=== PATIENT | male | born 1990 | race Caucasian/White ===

== ENCOUNTER 2016-08-02 04:16 | Emergency (ER) | payer BC ==
[2016-08-02] MEDS ORDERED: ACETAMINOPHEN IV (For NPO) 1,000 MG in EMPTY BAG 1 BAG IVPB STA (05:42)
[2016-08-02] MEDS ORDERED: KETOROLAC 30 MG/ML 1 ML VIAL IVP STA (05:42)
[2016-08-02] MEDS ORDERED: PANTOPRAZOLE 40 MG/10 ML VIAL IVP STA (05:42)
[2016-08-02] MEDS ORDERED: ONDANSETRON 4 MG/2 ML VIAL IVP STA (05:42)
[2016-08-02] MEDS ORDERED: SODIUM CHLORIDE 0.9% 500 ML IV STA (05:42)
[2016-08-02] MEDS ORDERED: SODIUM CHLORIDE 0.9% 1,000 ML IV STA (05:42)
--- NOTE | 2016-08-02 05:44 | ED ---
General Adult HPI - General Chief complaint: Nausea/Vomiting/Diarrhea Stated complaint: Vomiting/Back Pain Time Seen by Provider: 08/02/16 04:32 Source: patient, RN notes reviewed, old records reviewed Mode of arrival: wheelchair Limitations: no limitations - History of Present Illness Initial comments: This is a 26-year-old male who ER severe nausea vomiting and diarrhea. Patient' s Nothing 3-4 days. Patient denies any past medical history, no medications, no withdrawal medications, no drugs or alcohol. Patient has no recent travel history, severe fever starting yesterday and today, patient again is taking no medications fluid or food 3 days. Patient does feel very weak - Related Data Previous Rx's Medication Instructions Recorded Acetaminophen with Codeine 1 tab PO Q4H PRN #20 tab 08/02/16 [Tylenol w/codeine #3] Naproxen [Naprosyn] 500 mg PO Q12HR #30 tab 08/02/16 Ondansetron [Zofran] 4 mg PO Q8HR PRN #30 tab 08/02/16 Allergies Allergy/AdvReac Type Severity Reaction Status Date / Time No Known Allergies Allergy Verified 08/02/16 05:13 Review of Systems ROS Statement: Those systems with pertinent positive or pertinent negative responses have been documented in the HPI. ROS Other: All systems not noted in ROS Statement are negative. Past Medical History Additional Past Medical History / Comment(s): back pain History of Any Multi-Drug Resistant Organisms: None Reported Past Surgical History: No Surgical Hx Reported Past Psychological History: No Psychological Hx Reported Smoking Status: Current every day smoker Past Alcohol Use History: Occasional Past Drug Use History: None Reported General Exam Limitations: no limitations General appearance: alert, anxious, lethargic, in distress Head exam: Present: atraumatic, normocephalic, normal inspection Eye exam: Present: normal appearance, PERRL, EOMI. Absent: scleral icterus, conjunctival injection, periorbital swelling ENT exam: Present: mucous membranes dry Neck exam: Present: normal inspection. Absent: tenderness, meningismus, lymphadenopathy Respiratory exam: Present: normal lung sounds bilaterally. Absent: respiratory distress, wheezes, rales, rhonchi, stridor Cardiovascular Exam: Present: normal rhythm, tachycardia, normal heart sounds. Absent: systolic murmur, diastolic murmur, rubs, gallop, clicks GI/Abdominal exam: Present: soft, normal bowel sounds. Absent: distended, tenderness, guarding, rebound, rigid Extremities exam: Present: normal inspection, full ROM, normal capillary refill. Absent: tenderness, pedal edema, joint swelling, calf tenderness Back exam: Present: normal inspection Neurological exam: Present: alert, oriented X3, CN II-XII intact Psychiatric exam: Present: normal affect, normal mood Skin exam: Present: warm, dry, intact, normal color. Absent: rash Course Vital Signs 08/02/16 08/02/16 05:10 07:50 Temperature 102.4 F H 97.7 F Pulse Rate 107 H 97 Respiratory 16 15 Rate Blood Pressure 167/79 127/61 O2 Sat by Pulse 99 95 Oximetry Medical Decision Making - Medical Decision Making 26 year for severe nausea vomiting and diarrhea. Not eating or drinking for 3- 4 days. Feeling much better with fever control simple control and hydration here in emergency room. Patient was given symptom control for home and encouraged to increase liquid diet. - Lab Data Result diagrams: 08/02/16 05:35 08/02/16 05:35 Lab Results 08/02/16 08/02/16 08/02/16 Range/Units 05:35 05:35 05:35 WBC 19.3 H (3.8-10.6) k/uL RBC 5.90 (4.30-5.90) m/uL Hgb 16.8 (13.0-17.5) gm/dL Hct 47.7 (39.0-53.0) % MCV 80.9 (80.0-100.0) fL MCH 28.5 (25.0-35.0) pg MCHC 35.3 (31.0-37.0) g/dL RDW 12.6 (11.5-15.5) % Plt Count 250 (150-450) k/uL Neutrophils % 89 % Lymphocytes % 4 % Monocytes % 7 % Eosinophils % 0 % Basophils % 0 % Neutrophils # 17.2 H (1.3-7.7) k/uL Lymphocytes # 0.7 L (1.0-4.8) k/uL Monocytes # 1.3 H (0-1.0) k/uL Eosinophils # 0.0 (0-0.7) k/uL Basophils # 0.0 (0-0.2) k/uL Sodium 138 (137-145) mmol/L Potassium 3.9 (3.5-5.1) mmol/L Chloride 99 (98-107) mmol/L Carbon Dioxide 22 (22-30) mmol/L Anion Gap 17 mmol/L BUN 9 (9-20) mg/dL Creatinine 1.00 (0.66-1.25) mg/dL Est GFR (MDRD) Af Amer >60 (>60 ml/min/1.73 sqM) Est GFR (MDRD) Non-Af >60 (>60 ml/min/1.73 sqM) Glucose 118 H (74-99) mg/dL Plasma Lactic Acid Joseph 1.9 (0.7-2.0) mmol/L Calcium 10.0 (8.4-10.2) mg/dL Phosphorus 1.3 L (2.5-4.5) mg/dL Magnesium 1.4 L (1.6-2.3) mg/dL Total Bilirubin 1.9 H (0.2-1.3) mg/dL AST 23 (17-59) U/L ALT 44 (21-72) U/L Alkaline Phosphatase 121 (38-126) U/L Total Protein 6.7 (6.3-8.2) g/dL Albumin 4.6 (3.5-5.0) g/dL Disposition Clinical Impression: Dehydration Disposition: HOME SELF-CARE Instructions: Acute Nausea and Vomiting (ED), Acute Diarrhea (ED) Prescriptions: Acetaminophen with Codeine [Tylenol w/codeine #3] 1 tab PO Q4H PRN #20 tab PRN Reason: Pain Naproxen [Naprosyn] 500 mg PO Q12HR #30 tab Ondansetron [Zofran] 4 mg PO Q8HR PRN #30 tab PRN Reason: Nausea And Vomiting Referrals: None,Stated [Primary Care Provider] - 1-2 days
[2016-08-02 06:42] LABS: ALT 44 U/L (21-72); AST 23 U/L (17-59); Alkaline Phosphatase 121 U/L (38-126); Anion Gap 17 mmol/L; Blood Urea Nitrogen 9 mg/dL (9-20); Carbon Dioxide 22 mmol/L (22-30); Chloride 99 mmol/L (98-107); Glucose 118 mg/dL (74-99); Magnesium 1.4 mg/dL (1.6-2.3); Non-African American GFR(MDRD) >60 (>60 ml/min/1.73 sqM); Phosphorous 1.3 mg/dL (2.5-4.5); Potassium 3.9 mmol/L (3.5-5.1); Sodium 138 mmol/L (137-145); Total Bilirubin 1.9 mg/dL (0.2-1.3); Total Protein 6.7 g/dL (6.3-8.2)
[2016-08-02 06:50] LABS: Basophils % (A) 0 %; CHCM 37.2; Eosinophils % (A) 0 %; HCT 47.7 % (39.0-53.0); HDW 2.82; HGB 16.8 gm/dL (13.0-17.5); Luc # (Auto) 0.13; Luc % (Auto) 1; Lymphocytes # (A) 0.7 k/uL (1.0-4.8); Lymphocytes % (A) 4 %; MCH 28.5 pg (25.0-35.0); MCHC 35.3 g/dL (31.0-37.0); MCV 80.9 fL (80.0-100.0); Mean Platelet Volume 7.4; Monocytes # (A) 1.3 k/uL (0-1.0); Monocytes % (A) 7 %; Neutrophils # (A) 17.2 k/uL (1.3-7.7); Neutrophils % (A) 89 %; RDW 12.6 % (11.5-15.5); WBC 19.3 k/uL (3.8-10.6); WBC (Perox) 18.66
[2016-08-02 07:52] VITALS: BP 127/61; PULSE 97; RESP 15; TEMP 97.7
== END 2016-08-02 07:53 | disposition home or self-care (01) ==
LOC: EC 04:16
DX: E86.0 Dehydration (principal); R11.2 Nausea with vomiting, unspecified; R19.7 Diarrhea, unspecified; F17.200 Nicotine dependence, unspecified, uncomplicated
CPT/HCPCS: 36415; 80053; 83605; 83735; 84100; 85025; 87040; 99284; 96365; 96375; J2405; J1885; J0131; C9113

== ENCOUNTER 2016-08-10 07:51 | Emergency (ER) | payer BC ==
[2016-08-10 07:55] VITALS: RESP 20
[2016-08-10] MEDS ORDERED: FAMOTIDINE 20 MG TAB PO STA (08:16)
[2016-08-10] MEDS ORDERED: diphenhydrAMINE 50 MG CAP PO STA (08:16)
[2016-08-10] MEDS ORDERED: methylPREDNISolone SOD SUCCI 125 MG/2 ML VIAL IM STA (08:16)
--- NOTE | 2016-08-10 08:16 | ED ---
General Adult HPI - General Chief complaint: Skin/Abscess/Foreign Body Stated complaint: allergic reaction Time Seen by Provider: 08/10/16 08:03 Source: patient, RN notes reviewed Mode of arrival: ambulatory Limitations: no limitations - History of Present Illness Initial comments: 26-year-old male presents to the emergency department with a chief complaint of poison viry. 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 Patient then developed a rash. Patient states he went to his doctor he was started on steroids but he states it does not seem to be improving. Patient states there is nothing new or different in the house. Patient states breath if she does not feel warm to the touch. Patient has a nausea vomiting or fever chills with this. Patient states there is no new medications. Patient states she was concerned due to the continued rash and itching to thought that he should be evaluated. Patient states that he is in serious but he does not know the dose. Patient denies any fever chills associated with this. Patient states it's much like his typical reaction he gets when he has poison viry. Patient denies any recent fever, chills , shortness of breath, chest pain, back pain, abdominal pain, nausea vomiting, numbness or tingling, dysuria or hematuria, constipation or diarrhea, headaches or visual changes, or any other current symptoms. - Related Data Home Medications Medication Instructions Recorded Confirmed Prednisone(Unknown) 1 tab PO DAILY 08/10/16 08/10/16 Previous Rx's Medication Instructions Recorded Calamine/Zinc Oxide Lotion 1 applic TOPICAL QID 5 Days 08/10/16 [Calamine Lotion] Famotidine [Pepcid] 20 mg PO BID #10 tablet 08/10/16 diphenhydrAMINE [Benadryl] 50 mg PO HS PRN #5 capsule 08/10/16 predniSONE 20 mg PO DAILY #42 tab 08/10/16 Allergies Allergy/AdvReac Type Severity Reaction Status Date / Time No Known Allergies Allergy Verified 08/10/16 08:03 Review of Systems ROS Statement: Those systems with pertinent positive or pertinent negative responses have been documented in the HPI. ROS Other: All systems not noted in ROS Statement are negative. Past Medical History Additional Past Medical History / Comment(s): back pain History of Any Multi-Drug Resistant Organisms: None Reported Past Surgical History: No Surgical Hx Reported Past Psychological History: No Psychological Hx Reported Smoking Status: Current every day smoker Past Alcohol Use History: Occasional Past Drug Use History: None Reported General Exam Limitations: no limitations General appearance: alert, in no apparent distress Neck exam: Present: normal inspection Respiratory exam: Present: normal lung sounds bilaterally. Absent: respiratory distress, wheezes, rales, rhonchi, stridor Cardiovascular Exam: Present: regular rate, normal rhythm, normal heart sounds. Absent: systolic murmur, diastolic murmur, rubs, gallop, clicks Neurological exam: Present: alert, oriented X3, CN II-XII intact. Absent: motor sensory deficit Psychiatric exam: Present: normal affect, normal mood Skin exam: Present: warm, dry, intact, rash (Diffuse to arms and abdomen erythematous, no induration, nonraised) Course Vital Signs 08/10/16 07:53 Temperature 98.0 F Pulse Rate 75 Respiratory 20 Rate Blood Pressure 155/84 O2 Sat by Pulse 100 Oximetry Medical Decision Making - Medical Decision Making 26-year-old male presents with what appears to be contact dermatitis most likely from poison viry. Patient's current prednisone dose is only 10. We will increase this as well as the patient of the Solu-Medrol injection. We also started on Benadryl and Pepcid. We did discuss that he needs to follow-up with either his doctor or ticket agent if he has not seen much improvement by Wednesday. We discussed return parameters and all the patient's questions. He stated he understood he is in agreement with plan all questions have been answered. He will be discharged. Disposition Clinical Impression: Contact dermatitis Disposition: HOME SELF-CARE Condition: Stable Instructions: Poison Viry (ED), Contact Dermatitis (ED) Additional Instructions: Please use medication as discussed. Please follow up with family doctor if symptoms have not improved over the next two days. Please return to the emergency room if your symptoms increase or worsen or for any other concerns. Prescriptions: Calamine/Zinc Oxide Lotion [Calamine Lotion] 1 applic TOPICAL QID 5 Days Famotidine [Pepcid] 20 mg PO BID #10 tablet diphenhydrAMINE [Benadryl] 50 mg PO HS PRN #5 capsule PRN Reason: Itching predniSONE 20 mg PO DAILY #42 tab Referrals: None,Stated [Primary Care Provider] - 1-2 days Elzbieta,Fabiola, MD [STAFF PHYSICIAN] - 1-2 days Time of Disposition: 08:22
[2016-08-10 08:51] VITALS: BP 132/84; PULSE 78; TEMP 97.5
== END 2016-08-10 08:40 | disposition home or self-care (01) ==
LOC: EC 07:51
DX: L25.5 Unspecified contact dermatitis due to plants, except food (principal); F17.200 Nicotine dependence, unspecified, uncomplicated; Z79.52 Long term (current) use of systemic steroids
CPT/HCPCS: 99282; 96372; J2930

== ENCOUNTER 2018-03-29 12:53 | Emergency (ER) | payer BC, OTHER ==
[2018-03-29 13:12] VITALS: BP 136/93; PULSE 83; RESP 18; TEMP 98.7
--- NOTE | 2018-03-29 13:23 | ED ---
General Adult HPI - General Chief complaint: Extremity Injury, Upper Stated complaint: finger injury Time Seen by Provider: 03/29/18 13:15 Source: patient, RN notes reviewed, old records reviewed Mode of arrival: ambulatory Limitations: no limitations - History of Present Illness Initial comments: 48-year-old male presents with injury to the left thumb. States he was loading wood into a wood development director, walled pinned his left thumb against the metal housing of the development director. Injury occurred just prior to arrival. He has significant pain in this thumb. No other injury noted. Pain does shoot into the forearm when he moves his thumb. He also reports swelling of the left thumb as well. - Related Data Home Medications Medication Instructions Recorded Confirmed Prednisone(Unknown) 1 tab PO DAILY 08/10/16 08/10/16 Previous Rx's Medication Instructions Recorded Calamine/Zinc Oxide Lotion 1 applic TOPICAL QID 5 Days ml 08/10/16 [Calamine Lotion] Famotidine [Pepcid] 20 mg PO BID #10 tablet 08/10/16 diphenhydrAMINE [Benadryl] 50 mg PO HS PRN #5 capsule 08/10/16 predniSONE 20 mg PO DAILY #42 tab 08/10/16 Ibuprofen [Motrin] 600 mg PO Q8HR PRN #24 tab 03/29/18 Allergies Allergy/AdvReac Type Severity Reaction Status Date / Time No Known Allergies Allergy Verified 03/29/18 13:12 Review of Systems ROS Statement: Those systems with pertinent positive or pertinent negative responses have been documented in the HPI. ROS Other: All systems not noted in ROS Statement are negative. Past Medical History Additional Past Medical History / Comment(s): back pain History of Any Multi-Drug Resistant Organisms: None Reported Past Surgical History: No Surgical Hx Reported Past Psychological History: No Psychological Hx Reported Smoking Status: Former smoker Past Alcohol Use History: Occasional Past Drug Use History: None Reported General Exam Limitations: no limitations General appearance: alert, in no apparent distress Head exam: Present: atraumatic, normocephalic Eye exam: Present: normal appearance, PERRL ENT exam: Present: normal exam Neck exam: Present: normal inspection Respiratory exam: Present: normal lung sounds bilaterally. Absent: respiratory distress Cardiovascular Exam: Present: regular rate, normal rhythm Extremities exam: Present: other (Left hand, patient has pain and swelling of the proximal and distal forearm. There is some ecchymosis. Normal cap refill. No laceration. Patient has pain over the thumb as well as in the snuff box. Range of motion limited secondary to pain) Neurological exam: Present: alert Course Vital Signs 03/29/18 13:09 Temperature 98.7 F Pulse Rate 83 Respiratory 18 Rate Blood Pressure 136/93 O2 Sat by Pulse 97 Oximetry Procedures - Orthopedic Splinting/Casting Injury #1 Side: left Upper Extremity Injury Location: hand Upper Extremity Immobilizer: thumb spica Additional Comments: Patient is neurovascular intact both pre-and post-splinting. Medical Decision Making - Medical Decision Making 38-year-old male with left thumb injury. X-ray obtained, shows acute minimally displaced fracture of the proximal phalanx first digit left hand. Patient placed in a thumb spica splint as he also has pain over the snuffbox. Follow- up with orthopedics. Disposition Clinical Impression: Thumb fracture Disposition: HOME SELF-CARE Condition: Good Instructions: Hand Fracture (ED) Prescriptions: Ibuprofen [Motrin] 600 mg PO Q8HR PRN #24 tab PRN Reason: Pain Is patient prescribed a controlled substance at d/c from ED?: No Referrals: None,Stated [Primary Care Provider] - 1-2 days Otis Pace MD [STAFF PHYSICIAN] - 1-2 days Time of Disposition: 13:43
--- NOTE | 2018-03-29 13:36 | XR ---
EXAMINATION TYPE: XR hand complete LT DATE OF EXAM: 03/29/2018 CLINICAL HISTORY: Crushing injury with pain. TECHNIQUE: Frontal, lateral and oblique images of the left hand are obtained. COMPARISON: Left hand x-ray January 01, 2001. FINDINGS: There is comminuted acute minimally displaced fracture involving nearly entire shaft of fi rst proximal phalanx. No definitive intra-articular extension is identified. The joint spaces in the left hand appear within normal limits. Incomplete extension of the phalanges is noted. The overlying soft tissue appears unremarkable. IMPRESSION: There is acute comminuted minimally displaced fracture involving the first proximal phal anx of the left hand. (Initial encounter closed type post traumatic fracture)
[2018-03-29] MEDS ORDERED: IBUPROFEN 600 MG TAB PO STA (13:41)
== END 2018-03-29 13:48 | disposition home or self-care (01) ==
LOC: EC 12:53
DX: S62.512A Displaced fracture of proximal phalanx of left thumb, initial encounter for closed fracture (principal); M54.9 Dorsalgia, unspecified; Z79.52 Long term (current) use of systemic steroids; Z87.891 Personal history of nicotine dependence; W31.89XA Contact with other specified machinery, initial encounter; Y93.89 Activity, other specified
CPT/HCPCS: 29125; 99284

== ENCOUNTER 2019-02-13 12:52 | Emergency (ER) | payer OTHER ==
[2019-02-13 13:05] VITALS: TEMP 98.5
[2019-02-13] MEDS ORDERED: DIPH,PERTUS(ACELL)TETVAC-LF 0.5 ML VIAL IM ONE (14:41)
[2019-02-13] MEDS ORDERED: CEPHALEXIN 500 MG CAP PO STA (15:02)
[2019-02-13] MEDS ORDERED: CEPHALEXIN 500MG STARTER PACK 4 CAP BTL PO STA (15:02)
[2019-02-13] MEDS ORDERED: WATER FOR IRRIG, STERILE 1,000 ML BTL IRRIGATION ONE (15:02)
[2019-02-13] MEDS ORDERED: LIDOCAINE 1% INJ 10MG/ML (20 ML MDV) SQ STA (15:02)
--- NOTE | 2019-02-13 15:03 | XR ---
EXAMINATION TYPE: XR knee 4V RT DATE OF EXAM: 02/13/2019 CLINICAL HISTORY: Right knee pain and laceration TECHNIQUE: 4 views of the right knee are obtained. COMPARISON: None. FINDINGS: There is no acute fracture/dislocation evident in right knee. The tri-compartment joint s paces appear within normal limits. Fragmentation is well corticated of the tibial tuberosity from shani or injury or Nitin-Schlatter. Subcutaneous tissues demonstrate a soft tissue laceration over the pat manuel. Moderate opaque foreign body is seen. Dressing overlies the soft tissue defect. IMPRESSION: There is no acute fracture or dislocation in the right knee. Prepatellar soft tissue laceration without radiopaque foreign body.
--- NOTE | 2019-02-13 15:04 | ED ---
General Adult HPI - General Chief complaint: Wound/Laceration Stated complaint: right leg laceration Time Seen by Provider: 02/13/19 14:29 Source: patient, RN notes reviewed, old records reviewed Mode of arrival: ambulatory - History of Present Illness Initial comments: 29-year-old male patient is to ED with chief complaint of laceration to right anterior patella. Patient ports that he was working with a chainsaw, when he was startled, reports that he jumped back in the chainsaw grazed the aspect of his right anterior patella. This occurred approximately 6 hours before. Kady mark reports he cleaned out the cut and bandaged with a clean towel and electrical tape. She reports a mild amount of pain in anterior patella. Pt Is ambulatory. Denies any complaints this time. Denies knowing Date of last tetanus. Systemic: Pt denies fatigue, fever/chills, rash. Pt denies weakness, night sweats, weight loss. Neuro: Pt denies headache, visual disturbances, syncope or pre-syncope. HEENT: Pt denies ocular discharge or irritation, otalgia, rhinorrhea, pharyngitis or notable lymphadenopathy. Cardiopulmonary: Pt denies chest pain, SOB, heart palpitations, dyspnea on exertion. Abdominal/GI: Pt denies abdominal pain, n/v/d. : Pt denies dysuria, burning w/ urination, frequency/urgency. Denies new onset urinary or bowel incontinence. MSK: Pt denies myalgia, loss of strength or function in extremities. Neuro: Pt denies new onset weakness, paresthesias. - Related Data Home Medications Medication Instructions Recorded Confirmed Prednisone(Unknown) 1 tab PO DAILY 08/10/16 08/10/16 Previous Rx's Medication Instructions Recorded Calamine/Zinc Oxide Lotion 1 applic TOPICAL QID 5 Days ml 08/10/16 [Calamine Lotion] Famotidine [Pepcid] 20 mg PO BID #10 tablet 08/10/16 diphenhydrAMINE [Benadryl] 50 mg PO HS PRN #5 capsule 08/10/16 predniSONE 20 mg PO DAILY #42 tab 08/10/16 Ibuprofen [Motrin] 600 mg PO Q8HR PRN #24 tab 03/29/18 Cephalexin [Keflex] 500 mg PO Q6HR 3 Days #12 cap 02/13/19 Allergies Allergy/AdvReac Type Severity Reaction Status Date / Time No Known Allergies Allergy Verified 02/13/19 13:02 Review of Systems ROS Statement: Those systems with pertinent positive or pertinent negative responses have been documented in the HPI. ROS Other: All systems not noted in ROS Statement are negative. Past Medical History Additional Past Medical History / Comment(s): back pain History of Any Multi-Drug Resistant Organisms: None Reported Past Surgical History: No Surgical Hx Reported Past Psychological History: No Psychological Hx Reported Smoking Status: Current every day smoker Past Alcohol Use History: Occasional Past Drug Use History: Marijuana General Exam - General Exam Comments Initial Comments: Constitutional: NAD, AOX3, Pt has pleasant affect. HEENT: NC/AT, trachea midline, neck supple, no lymphadenopathy. Posterior pharynx non erythematous, without exudates. External ears appear normal, without discharge. Mucous membranes moist. Eyes PERRLA, EOM intact. There is no scleral icterus. No pallor noted. Cardiopulmonary: RRR, no murmurs, rubs or gallops, no JVD noted. Lungs CTAB in anterior and posterior cortes. No peripheral edema. Abdominal exam: Abdomen soft and non-distended. Abdomen non-tender to palpation in all 4 quadrants. Bowel sounds active in LLQ. No hepatosplenomegaly. No ecchymosis Neuro: CN II-XII grossly intact. No nuchal rigidity. No raccon eyes, no shepherd sign, no hemotympanum. No cervical spinal tenderness. MSK: 3 cm laceration to anterior aspect of right patella. Full active ROM of knee, ambulatory without difficulty. No posterior calf tenderness bilaterally, homans sign negative bilaterally. Posterior tibialis and radial pulse +2 bila terally. Sensation intact in upper and lower extremities. Full active ROM in upper and lower extremities, 5/5 stregnth. Course Vital Signs 02/13/19 02/13/19 13:02 15:07 Temperature 98.5 F Pulse Rate 60 Respiratory 18 Rate Blood Pressure 119/76 O2 Sat by Pulse 98 Oximetry Procedures - Laceration Laceration #1 Consent Obtained: verbal consent Indication: laceration Site: other (R knee ) Size (cm): 3 Description: linear Depth: simple, single layer Anesthetic Used: lidocaine 1% Anesthesia Technique: local infiltration Amount (mls): 3 Pre-repair: wound explored, irrigated extensively (500mL NS ), deep structures intact Type of Sutures: nylon Size of Sutures: 5-0 Number of Sutures: 3 Technique: simple, interrupted Patient Tolerated Procedure: well, no complications Medical Decision Making - Medical Decision Making 29-year-old male patient is to ED with chief complaint of laceration to right anterior patella. Patient ports that he was working with a chainsaw, when he was startled, reports that he jumped back in the chainsaw grazed the aspect of his right anterior patella. This occurred approximately 6 hours before. Patient reports he cleaned out the cut and bandaged with a clean towel and electrical tape. She reports a mild amount of pain in anterior patella. Pt Is ambulatory. Denies any complaints this time. Denies knowing Date of last tetanus. Pt VSS, afebrile. Physical exam displayed: 3 cm laceration to anterior aspect of right patella. Full active ROM of knee, ambulatory without difficulty. Wound was irrigated with 500 mL normal saline, approximately 3 simple interrupted sutures. Plain films displayed no acute fracture dislocation right knee, prepatellar soft tissue administration without radiopaque foreign body. Patient discharged with 3 days of Keflex, return precautions. Case discussed with Dr. Simmons. Disposition Clinical Impression: Laceration Disposition: HOME SELF-CARE Condition: Stable Instructions (If sedation given, give patient instructions): Laceration (ED) Additional Instructions: Patient to adhere to previously discussed treatment plan and will take medication(s) as directed. Patient to follow up with PCP in 1-2 days. Patient to return to ED if symptoms do not improve. Follow-up with primary care provider tomorrow, return to ER if condition worsens. Please return for suture removal: Hand: 7-10 days Face: 5 days Chest/abdomen: 12-14 days Extremities: 7-10 days Scalp: 7 days Eyebrow: 5-7 days Foot/sole: 12-14 days Please monitor for signs and symptoms of infection including: redness, warmth, drainage, discharge. Please return to ED if these signs or symptoms occur, new signs or symptoms develop or if condition worsens in anyway. Prescriptions: Cephalexin [Keflex] 500 mg PO Q6HR 3 Days #12 cap Is patient prescribed a controlled substance at d/c from ED?: No Referrals: None,Stated [Primary Care Provider] - 1-2 days
[2019-02-13 15:09] VITALS: RESP 18
[2019-02-13 16:02] VITALS: BP 120/72; PULSE 66
== END 2019-02-13 16:00 | disposition home or self-care (01) ==
LOC: EC 12:52
DX: S81.011A Laceration without foreign body, right knee, initial encounter (principal); F17.200 Nicotine dependence, unspecified, uncomplicated; Z79.52 Long term (current) use of systemic steroids; Z87.39 Personal history of other diseases of the musculoskeletal system and connective tissue; Z23 Encounter for immunization; W27.8XXA Contact with other nonpowered hand tool, initial encounter; Y93.89 Activity, other specified; Y92.009 Unspecified place in unspecified non-institutional (private) residence as the place of occurrence of the external cause
CPT/HCPCS: 73564; 90715; 99283; 12002; 90471; J2001

== ENCOUNTER 2019-06-16 10:34 | Emergency (ER) | payer BC, OTHER ==
[2019-06-16 11:05] VITALS: RESP 18
[2019-06-16] MEDS ORDERED: ONDANSETRON 4 MG/2 ML VIAL IVP STA (11:09)
[2019-06-16] MEDS ORDERED: SODIUM CHLORIDE 0.9% 1,000 ML IV STA (11:09)
--- NOTE | 2019-06-16 11:14 | ED ---
Nausea/Vomiting/Diarrhea HPI - General Chief complaint: Nausea/Vomiting/Diarrhea Stated complaint: Vomiting Time Seen by Provider: 06/16/19 11:01 Source: patient Mode of arrival: ambulatory Limitations: no limitations - History of Present Illness Initial comments: Patient is a 29-year-old male presenting to the emergency department with a chief complaint nausea vomiting diarrhea. He reports the symptoms began 3 days ago after a family gathering where another person had similar symptoms. Patient reports now he, his girlfriend and kids all have similar symptoms. Patient reports continuous nausea with multiple episodes of nonbloody, nonbilious vom iting. He does report nonbloody diarrhea as well. States the vomiting occurs as soon as he has anything by mouth. Denies night sweats fevers but does have chills. Does report a cough as well that is nonproductive in nature. Denies taking medication to alleviate the symptoms. Denies any abdominal pain., Back pain, chest pain, shortness of breath, testicular pain or swelling - Related Data Home Medications Medication Instructions Recorded Confirmed Prednisone(Unknown) 1 tab PO DAILY 08/10/16 08/10/16 Previous Rx's Medication Instructions Recorded Calamine/Zinc Oxide Lotion 1 applic TOPICAL QID 5 Days ml 08/10/16 [Calamine Lotion] Famotidine [Pepcid] 20 mg PO BID #10 tablet 08/10/16 diphenhydrAMINE [Benadryl] 50 mg PO HS PRN #5 capsule 08/10/16 predniSONE 20 mg PO DAILY #42 tab 08/10/16 Ibuprofen [Motrin] 600 mg PO Q8HR PRN #24 tab 03/29/18 Cephalexin [Keflex] 500 mg PO Q6HR 3 Days #12 cap 02/13/19 Ondansetron Odt [Zofran Odt] 4 mg PO Q8HR PRN #14 tab 06/16/19 methylPREDNISolone [Medrol Dose 4 mg PO DIRECTED #1 pack 06/16/19 Pack] Allergies Allergy/AdvReac Type Severity Reaction Status Date / Time No Known Allergies Allergy Verified 06/16/19 10:59 Review of Systems ROS Statement: Those systems with pertinent positive or pertinent negative responses have been documented in the HPI. ROS Other: All systems not noted in ROS Statement are negative. Past Medical History Additional Past Medical History / Comment(s): back pain History of Any Multi-Drug Resistant Organisms: None Reported Past Surgical History: No Surgical Hx Reported Past Psychological History: No Psychological Hx Reported Smoking Status: Current every day smoker Past Alcohol Use History: Occasional Past Drug Use History: Marijuana General Exam Limitations: no limitations General appearance: alert, in no apparent distress Head exam: Present: atraumatic, normocephalic, normal inspection Eye exam: Present: normal appearance Pupils: Present: normal accommodation ENT exam: Present: normal exam, mucous membranes moist Neck exam: Present: normal inspection, full ROM Respiratory exam: Present: normal lung sounds bilaterally Cardiovascular Exam: Present: regular rate, normal rhythm, normal heart sounds GI/Abdominal exam: Present: soft, tenderness (Very mild left upper quadrant tenderness). Absent: distended, guarding, rebound Extremities exam: Present: normal inspection, full ROM Back exam: Present: normal inspection, full ROM Neurological exam: Present: alert, oriented X3 Psychiatric exam: Present: normal affect, normal mood Skin exam: Present: warm, dry, intact, normal color Course Vital Signs 06/16/19 06/16/19 11:00 11:29 Temperature 98.3 F 101.8 F H Pulse Rate 104 H Respiratory 18 Rate Blood Pressure 145/96 O2 Sat by Pulse 99 Oximetry Medical Decision Making - Medical Decision Making Patient is a 29-year-old male presenting to emergency Department with a chief complaint of nausea vomiting diarrhea. Symptoms began about 3 days ago after he was in a family gathering with other people with similar type symptoms. Patient does have a fever in the ED. On exam patient is clear and auscultation. Very mild left upper quadrant abdominal tenderness which I suspect is secondary to th e multiple episodes of vomiting. Patient is influenza positive. This is about 3 days since the onset of symptoms. Tamiflu will have minimal effect. Patient will be discharged with a Medrol Dosepak. Patient advised to drink lots of fluids. Strict return parameters were thoroughly discussed with patient who is understanding and agreeable . case discussed with physician. - Lab Data Result diagrams: 06/16/19 11:20 06/16/19 11:20 Lab Results 06/16/19 06/16/19 06/16/19 Range/Units 11:20 11:20 11:20 WBC 6.5 (3.8-10.6) k/uL RBC 6.16 H (4.30-5.90) m/uL Hgb 17.5 (13.0-17.5) gm/dL Hct 48.4 (39.0-53.0) % MCV 78.5 L (80.0-100.0) fL MCH 28.4 (25.0-35.0) pg MCHC 36.2 (31.0-37.0) g/dL RDW 12.2 (11.5-15.5) % Plt Count 211 (150-450) k/uL Neutrophils % 72 % Lymphocytes % 16 % Monocytes % 9 % Eosinophils % 1 % Basophils % 1 % Neutrophils # 4.7 (1.3-7.7) k/uL Lymphocytes # 1.0 (1.0-4.8) k/uL Monocytes # 0.6 (0-1.0) k/uL Eosinophils # 0.1 (0-0.7) k/uL Basophils # 0.0 (0-0.2) k/uL Sodium 136 L (137-145) mmol/L Potassium 4.0 (3.5-5.1) mmol/L Chloride 98 (98-107) mmol/L Carbon Dioxide 26 (22-30) mmol/L Anion Gap 12 mmol/L BUN 12 (9-20) mg/dL Creatinine 1.00 (0.66-1.25) mg/dL Est GFR (CKD-EPI)AfAm >90 (>60 ml/min/1.73 sqM) Est GFR (CKD-EPI)NonAf >90 (>60 ml/min/1.73 sqM) Glucose 94 (74-99) mg/dL Calcium 9.6 (8.4-10.2) mg/dL Total Bilirubin 1.0 (0.2-1.3) mg/dL AST 30 (17-59) U/L ALT 18 (4-49) U/L Alkaline Phosphatase 82 (38-126) U/L Total Protein 6.2 L (6.3-8.2) g/dL Albumin 4.2 (3.5-5.0) g/dL Lipase 30 (23-300) U/L Influenza Type A RNA Not Detected (Not Detectd) Influenza Type B (PCR) Detected H (Not Detectd) Disposition Clinical Impression: Influenza B Disposition: HOME SELF-CARE Condition: Stable Instructions (If sedation given, give patient instructions): Influenza (DC) Additional Instructions: Please take prescribed medication as directed. Please follow up with primary care. Make sure she drinks lots of fluids. Please return to emergency department if symptoms worsen. Prescriptions: methylPREDNISolone [Medrol Dose Pack] 4 mg PO DIRECTED #1 pack Ondansetron Odt [Zofran Odt] 4 mg PO Q8HR PRN #14 tab PRN Reason: Nausea Is patient prescribed a controlled substance at d/c from ED?: No Referrals: None,Stated [Primary Care Provider] - 1-2 days Time of Disposition: 11:55
[2019-06-16] MEDS ORDERED: ACETAMINOPHEN TAB 500 MG TAB PO STA (11:31)
[2019-06-16 11:38] LABS: Basophils % (A) 1 %; Eosinophils # (A) 0.1 k/uL (0-0.7); Eosinophils % (A) 1 %; HCT 48.4 % (39.0-53.0); HGB 17.5 gm/dL (13.0-17.5); Lymphocytes % (A) 16 %; MCH 28.4 pg (25.0-35.0); MCHC 36.2 g/dL (31.0-37.0); MCV 78.5 fL (80.0-100.0); Mean Platelet Volume 7.3; Monocytes # (A) 0.6 k/uL (0-1.0); Monocytes % (A) 9 %; Neutrophils # (A) 4.7 k/uL (1.3-7.7); Neutrophils % (A) 72 %; Platelet Count 211 k/uL (150-450); RBC 6.16 m/uL (4.30-5.90); RDW 12.2 % (11.5-15.5); WBC 6.5 k/uL (3.8-10.6)
[2019-06-16 11:42] LABS: ALT 18 U/L (4-49); AST 30 U/L (17-59); African American GFR (CKD) >90 (>60 ml/min/1.73 sqM); Albumin 4.2 g/dL (3.5-5.0); Alkaline Phosphatase 82 U/L (38-126); Anion Gap 12 mmol/L; Blood Urea Nitrogen 12 mg/dL (9-20); Calcium 9.6 mg/dL (8.4-10.2); Carbon Dioxide 26 mmol/L (22-30); Chloride 98 mmol/L (98-107); Glucose 94 mg/dL (74-99); Non-African American GFR(CKD) >90 (>60 ml/min/1.73 sqM); Sodium 136 mmol/L (137-145); Total Protein 6.2 g/dL (6.3-8.2)
[2019-06-16 12:10] LABS: Appearance,Urine Clear (Clear); Bacteria,Urine Rare /hpf; Bilirubin,Urine Negative (Negative); Blood,Urine Negative (Negative); Color,Urine Yellow; Glucose,Urine (UA) Negative (Negative); Ketones,Urine 2+ (Negative); Leukocyte Esterase,Urine Negative (Negative); Mucus,Urine Many /hpf; Nitrite,Urine Negative (Negative); Protein,Urine 1+ (Negative); Specific Gravity,Urine 1.027 (1.001-1.035); WBC,Urine 2 /hpf (0-5)
[2019-06-16 12:21] VITALS: BP 138/87; PULSE 87; TEMP 99.3
== END 2019-06-16 12:22 | disposition home or self-care (01) ==
LOC: EC 10:34
DX: J10.1 Influenza due to other identified influenza virus with other respiratory manifestations (principal); R11.2 Nausea with vomiting, unspecified; R19.7 Diarrhea, unspecified; F17.200 Nicotine dependence, unspecified, uncomplicated; Z79.52 Long term (current) use of systemic steroids
CPT/HCPCS: 99284; 96374; 96361; 36415; 80053; 83690; 85025; 81001; 87502; J2405

== ENCOUNTER 2019-06-23 13:26 | Inpatient (IN) | payer OTHER ==
[2019-06-23] MEDS ORDERED: methylPREDNISolone SOD SUCCI 125 MG/2 ML VIAL IV STA (14:14)
[2019-06-23] MEDS ORDERED: ACETAMINOPHEN TAB 500 MG TAB PO STA (14:14)
[2019-06-23] MEDS ORDERED: IPRATROPIUM-ALBUTEROL 3 ML NEB INHALATION STA (14:14)
[2019-06-23] MEDS ORDERED: SODIUM CHLORIDE 0.9% 1,000 ML IV STA (14:14)
--- NOTE | 2019-06-23 14:14 | ED ---
URI HPI - General Chief Complaint: Upper Respiratory Infection Stated Complaint: Vomiting, pneumonia, low 02, Sent by [facility] Time Seen by Provider: 06/23/19 14:01 Source: patient, family, RN notes reviewed, old records reviewed Mode of arrival: wheelchair Limitations: no limitations - History of Present Illness Initial Comments: Patient's 29-year-old male presents emergency room to 2 weeks of nausea and vomiting. Also was diagnosed with the flu on 06/16. He also states he's had a worsening cough congestion. He went to [facility] today for concern for worsening cough and was sent here for further evaluation after he had a low oxygen saturation and of low 90s on room air. Patient at that time received Decadron and breathing treatments and was sent here. Patient arrives to the emergency Department with fever 102. He denies any abdominal pain. He states that he has diffuse body aches. Patient reports has had the flu in the past ra ise been dehydrated enough that he's had be admitted before. Patient states that he has not had Motrin or Tylenol as today. Denies any history of sick contacts that he is aware of. X-ray in [facility] and they question pneumonia. - Related Data Home Medications Medication Instructions Recorded Confirmed Prednisone(Unknown) 1 tab PO DAILY 08/10/16 08/10/16 Previous Rx's Medication Instructions Recorded Calamine/Zinc Oxide Lotion 1 applic TOPICAL QID 5 Days ml 08/10/16 [Calamine Lotion] Famotidine [Pepcid] 20 mg PO BID #10 tablet 08/10/16 diphenhydrAMINE [Benadryl] 50 mg PO HS PRN #5 capsule 08/10/16 predniSONE 20 mg PO DAILY #42 tab 08/10/16 Ibuprofen [Motrin] 600 mg PO Q8HR PRN #24 tab 03/29/18 Cephalexin [Keflex] 500 mg PO Q6HR 3 Days #12 cap 02/13/19 Ondansetron Odt [Zofran Odt] 4 mg PO Q8HR PRN #14 tab 06/16/19 methylPREDNISolone [Medrol Dose 4 mg PO DIRECTED #1 pack 06/16/19 Pack] Allergies Allergy/AdvReac Type Severity Reaction Status Date / Time No Known Allergies Allergy Verified 06/23/19 13:37 Review of Systems ROS Statement: Those systems with pertinent positive or pertinent negative responses have been documented in the HPI. ROS Other: All systems not noted in ROS Statement are negative. Past Medical History Additional Past Medical History / Comment(s): back pain History of Any Multi-Drug Resistant Organisms: None Reported Past Surgical History: No Surgical Hx Reported Past Psychological History: No Psychological Hx Reported Smoking Status: Current every day smoker Past Alcohol Use History: Occasional Past Drug Use History: Marijuana General Exam - General Exam Comments Initial Comments: 29 year old male, moderate discomfort. Limitations: no limitations General appearance: alert, in no apparent distress Head exam: Present: atraumatic, normocephalic, normal inspection Eye exam: Present: normal appearance, PERRL, EOMI. Absent: scleral icterus, conjunctival injection, periorbital swelling ENT exam: Present: normal exam, mucous membranes moist Neck exam: Present: normal inspection. Absent: tenderness, meningismus, lymphadenopathy Respiratory exam: Present: normal lung sounds bilaterally. Absent: respiratory distress, wheezes, rales, rhonchi, stridor Cardiovascular Exam: Present: normal rhythm, tachycardia, normal heart sounds. Absent: regular rate, systolic murmur, diastolic murmur, rubs, gallop, clicks GI/Abdominal exam: Present: soft, normal bowel sounds. Absent: distended, tenderness, guarding, rebound, rigid Extremities exam: Present: normal inspection Back exam: Present: normal inspection Neurological exam: Present: alert, oriented X3, CN II-XII intact Psychiatric exam: Present: normal affect, normal mood Skin exam: Present: warm, dry, intact, normal color. Absent: rash Course Vital Signs 06/23/19 06/23/19 06/23/19 13:37 14:51 15:00 Temperature 98.8 F Pulse Rate 122 H 103 H 104 H Respiratory 18 16 18 Rate Blood Pressure 133/89 O2 Sat by Pulse 92 L Oximetry Medical Decision Making - Medical Decision Making 29-year-old male presents today for evaluation for concerns for cough, conges tion nausea and vomiting over the past 2 weeks. Patient appears dehydrated and eyebrow. He is given Motrin Tylenol. He did have a positive influenza test on 06/16. Outpatient chest x-ray shows no focal pneumonia at this time but with clinical concern for worsening Y cough Patient was given a dose of Solu-Medrol and Rocephin and emergency department. Given breathing treatment and IV established. CBC is unremarkable. BMP does show hyponatremia and hypokalemia. Patient case was discussed with Dr. Glez, then later Dr. Gonzalez whom is agreeable to admission. Request consult to Dr. Lopez. - Lab Data Result diagrams: 06/23/19 14:45 06/23/19 14:45 Lab Results 06/23/19 06/23/19 06/23/19 Range/Units 14:45 14:45 14:45 WBC 12.1 H (3.8-10.6) k/uL RBC 5.83 (4.30-5.90) m/uL Hgb 16.2 (13.0-17.5) gm/dL Hct 44.8 (39.0-53.0) % MCV 76.9 L (80.0-100.0) fL MCH 27.7 (25.0-35.0) pg MCHC 36.1 (31.0-37.0) g/dL RDW 12.2 (11.5-15.5) % Plt Count 282 (150-450) k/uL Neutrophils % 89 % Lymphocytes % 3 % Monocytes % 4 % Eosinophils % 0 % Basophils % 3 % Neutrophils # 10.8 H (1.3-7.7) k/uL Lymphocytes # 0.4 L (1.0-4.8) k/uL Monocytes # 0.5 (0-1.0) k/uL Eosinophils # 0.0 (0-0.7) k/uL Basophils # 0.3 H (0-0.2) k/uL Hyperchromasia Slight Sodium 127 L (137-145) mmol/L Potassium 3.4 L (3.5-5.1) mmol/L Chloride 90 L (98-107) mmol/L Carbon Dioxide 26 (22-30) mmol/L Anion Gap 11 mmol/L BUN 9 (9-20) mg/dL Creatinine 0.64 L (0.66-1.25) mg/dL Est GFR (CKD-EPI)AfAm >90 (>60 ml/min/1.73 sqM) Est GFR (CKD-EPI)NonAf >90 (>60 ml/min/1.73 sqM) Glucose 121 H (74-99) mg/dL Plasma Lactic Acid Joseph 1.0 (0.7-2.0) mmol/L Calcium 8.6 (8.4-10.2) mg/dL - Radiology Data Radiology results: report reviewed Reviewed on Patient chest x-ray, no signs of focal pneumonia this time. Disposition Clinical Impression: Influenza B, Hyponatremia, Dehydration, Nausea & vomiting, Hypoxia Disposition: ADMITTED IP TO THIS HOSP Condition: Stable Is patient prescribed a controlled substance at d/c from ED?: No Referrals: None,Stated [Primary Care Provider] - 1-2 days Time of Disposition: 16:19
[2019-06-23] MEDS ORDERED: IBUPROFEN IV 800 MG in SODIUM CHLORIDE 0.9% 250 ML IV ONE (14:42)
[2019-06-23] MEDS: SODIUM CHLORIDE 0.9% 1,000 ML IV SCH (14:45)
[2019-06-23 15:12] LABS: African American GFR (CKD) >90 (>60 ml/min/1.73 sqM); Anion Gap 11 mmol/L; Blood Urea Nitrogen 9 mg/dL (9-20); Calcium 8.6 mg/dL (8.4-10.2); Carbon Dioxide 26 mmol/L (22-30); Chloride 90 mmol/L (98-107); Glucose 121 mg/dL (74-99); Non-African American GFR(CKD) >90 (>60 ml/min/1.73 sqM); Potassium 3.4 mmol/L (3.5-5.1); Sodium 127 mmol/L (137-145)
[2019-06-23 15:13] LABS: Basophils # (A) 0.3 k/uL (0-0.2); Basophils % (A) 3 %; Eosinophils % (A) 0 %; HCT 44.8 % (39.0-53.0); HGB 16.2 gm/dL (13.0-17.5); Hyperchromasia Slight; Lymphocytes # (A) 0.4 k/uL (1.0-4.8); Lymphocytes % (A) 3 %; MCH 27.7 pg (25.0-35.0); MCHC 36.1 g/dL (31.0-37.0); MCV 76.9 fL (80.0-100.0); Mean Platelet Volume 7.9; Monocytes # (A) 0.5 k/uL (0-1.0); Monocytes % (A) 4 %; Neutrophils # (A) 10.8 k/uL (1.3-7.7); Neutrophils % (A) 89 %; Platelet Count 282 k/uL (150-450); RBC 5.83 m/uL (4.30-5.90); RDW 12.2 % (11.5-15.5); WBC 12.1 k/uL (3.8-10.6)
[2019-06-23] MEDS ORDERED: cefTRIAXone IN SWFI 1,000 MG/10 ML SYRINGE IVP STA (15:31)
[2019-06-23] MEDS ORDERED: SODIUM CHLORIDE 0.9% 1,000 ML IV ONE (16:20)
[2019-06-23] MEDS ORDERED: ONDANSETRON 4 MG/2 ML VIAL IVP PRN (16:21)
[2019-06-23] MEDS ORDERED: IBUPROFEN 400 MG TAB PO PRN (16:21)
[2019-06-23] MEDS ORDERED: oxyCODONE-APAP 5-325MG 1 EACH TAB PO PRN (16:21)
[2019-06-23] MEDS ORDERED: ACETAMINOPHEN TAB 325 MG TAB PO PRN (16:21)
[2019-06-23] MEDS ORDERED: NALOXONE 0.4 MG/ML 1 ML VIAL IV PRN (16:21)
[2019-06-23 16:51] LABS: INR 1.2 (<1.2); Partial Thromboplastin Time 29.2 sec (22.0-30.0); Prothrombin Time 12.3 sec (9.0-12.0)
[2019-06-23 16:58] LABS: D-Dimer 0.63 mg/L FEU (<0.60)
--- NOTE | 2019-06-23 18:15 | CT ---
CT CHEST FOR PULMONARY EMBOLISM. EXAMINATION TYPE: CT chest angio for PE DATE OF EXAM: 06/23/2019 INDICATION: Elevated d-dimer. Positive for flu. CT DLP: 384.4 mGycm, Automated exposure control for dose reduction was used. CONTRAST: Patient injected with 100 mL of Isovue 370. COMPARISON: None TECHNIQUE: CT of the chest is performed on a spiral scan at 2 mm thick sections. Study is performed with intravenous contrast timed for evaluation for pulmonary embolism. This will limit additional po rtions of the evaluation. 3-D MIP images reconstructed by the technologist are reviewed on the compu ter in the coronal and sagittal planes. There is some limitation on the examination due to the artifact. FINDINGS: No persistent filling defects are evident to suggest an acute pulmonary embolism. No mediastinal or hilar adenopathy enlarged by CT criteria is evident. The ascending aorta diameter at the level of the main pulmonary artery is 2.9 cm. The main pulmonary artery diameter at the bifur cation is 2.7 cm. Lung windows are clear. Limited CT section through the upper abdomen grade there is mild fatty infiltration to the liver. IMPRESSIONS: 1. No acute pulmonary embolism. There is some limitation on the exam.
[2019-06-23] MEDS ORDERED: IPRATROPIUM-ALBUTEROL 3 ML NEB INHALATION SCH (20:00)
[2019-06-23] MEDS: methylPREDNISolone SOD SUCCI 40 MG/ML 1 ML VIAL IV SCH (23:33)
[2019-06-24] MEDS: SODIUM CHLORIDE 0.9% 1,000 ML IV SCH ×3 (01:03→19:50)
[2019-06-24] MEDS: KETOROLAC 30 MG/ML 1 ML VIAL IVP PRN (03:29)
[2019-06-24] MEDS: methylPREDNISolone SOD SUCCI 40 MG/ML 1 ML VIAL IV SCH ×3 (05:53→17:55)
--- NOTE | 2019-06-24 07:32 | CONS ---
CONSULTATION Carmine Marti is a 29-year-old male who presented to the ER at [facility] with worsening cough. This has been associated with shortness of breath and wheezing. He had been diagnosed with the flu on 06/16. When he came to the ER his oxygen saturations were in the low 90s on room air. He had a temperature of 102, he had diffuse body aches and was tachycardic. He subsequently was admitted for further evaluation. PAST MEDICAL HISTORY: Positive for back pain. No clear history of asthma or COPD. SOCIAL HISTORY: Patient smokes marijuana. Does not drink alcohol excessively. FAMILY HISTORY: Positive for flu-like symptoms in several members of his family. MEDICATIONS: Prior to admission were none. REVIEW OF SYSTEMS: Noncontributory. PHYSICAL EXAMINATION: Blood pressure is 135/88, respiratory rate of 18, pulse rate 94, temperature 98.8, O2 saturation on 2 L by nasal cannula is 95%. HEENT: Reveals pupils that are equal. CHEST: Reveals decreased breath sounds. Prolonged exhalation with expiratory wheeze. CARDIOVASCULAR SYSTEM: Reveals an S1, S2. ABDOMEN: Soft. There is no edema. The patient is profusely diaphoretic. LABORATORY DATA: White count is 12.1, hemoglobin is 16.2, PT/INR of 1.2. Sodium 127, potassium 3.4, chloride 98, bicarb 26, BUN 9, creatinine of 0.64. CT scan of the chest failed to show any discrete infiltrates or blood clots. IMPRESSION: 1. Influenza. 2. Dehydration. 3. Bronchospasm secondary to occult asthma with acute exacerbation in part precipitated by a viral illness. 4. Leukocytosis with neutrophilia. At this point in time from a pulmonary standpoint, would continue the patient on Rocephin, bronchodilators. Keep the patient on IV steroids, aerosolized steroids, albuterol as needed, GI and DVT prophylaxis. Depending on how he does, we shall make further changes to his care. He was diagnosed with influenza on 06/16. We will start him on Tamiflu as well. MMODL / IJN: [id number] /
[2019-06-24] MEDS: BUDESONIDE 0.5 MG/2 ML NEBU INHALATION SCH ×2 (08:53→21:25)
[2019-06-24] MEDS: ALBUTEROL NEBULIZED 2.5 MG/3 ML INHALATION PRN ×4 (08:53→21:25)
[2019-06-24] MEDS: HEPARIN SODIUM,PORCINE 5,000 UNIT/ML 1 ML VIAL SQ SCH ×3 (09:08→20:23)
[2019-06-24] MEDS: OSELTAMIVIR 75 MG CAP PO SCH ×2 (09:08→20:17)
[2019-06-24] MEDS: PANTOPRAZOLE 40 MG/10 ML VIAL IV SCH (09:08)
[2019-06-24] MEDS: FAMOTIDINE 20 MG/2 ML VIAL IV SCH ×2 (09:09→20:17)
[2019-06-24 13:38] LABS: AST 36 U/L (17-59); African American GFR (CKD) >90 (>60 ml/min/1.73 sqM); Albumin 3.1 g/dL (3.5-5.0); Alkaline Phosphatase 87 U/L (38-126); Anion Gap 13 mmol/L; Blood Urea Nitrogen 10 mg/dL (9-20); Calcium 8.6 mg/dL (8.4-10.2); Carbon Dioxide 22 mmol/L (22-30); Chloride 103 mmol/L (98-107); Glucose 151 mg/dL (74-99); Non-African American GFR(CKD) >90 (>60 ml/min/1.73 sqM); Potassium 3.1 mmol/L (3.5-5.1); Sodium 138 mmol/L (137-145); Total Bilirubin 0.4 mg/dL (0.2-1.3); Total Protein 5.3 g/dL (6.3-8.2)
[2019-06-24 13:44] LABS: ALT 28 U/L (4-49)
[2019-06-24 13:49] LABS: Basophils # (A) 0.1 k/uL (0-0.2); Basophils % (A) 1 %; Eosinophils % (A) 0 %; HCT 45.1 % (39.0-53.0); HGB 15.5 gm/dL (13.0-17.5); Lymphocytes # (A) 0.8 k/uL (1.0-4.8); Lymphocytes % (A) 6 %; MCH 27.5 pg (25.0-35.0); MCHC 34.3 g/dL (31.0-37.0); Mean Platelet Volume 7.6; Monocytes # (A) 0.6 k/uL (0-1.0); Monocytes % (A) 4 %; Neutrophils # (A) 12.5 k/uL (1.3-7.7); Neutrophils % (A) 88 %; Platelet Count 352 k/uL (150-450); RBC 5.64 m/uL (4.30-5.90); RDW 12.4 % (11.5-15.5); WBC 14.1 k/uL (3.8-10.6)
--- NOTE | 2019-06-24 15:09 | PN ---
PROGRESS NOTE He was seen on 06/24/2019. He has been hemodynamically stable. He is awake and alert. He is less short of breath and more comfortable at this time. PHYSICAL EXAMINATION: He is sitting in bed. His respiratory rate is 16, pulse rate of 96, temperature 98.3, blood pressure 133/78. HEENT: Reveals pupils that are equal. CHEST: Reveals expiratory wheeze but more air entry compared to yesterday. CARDIOVASCULAR SYSTEM: Reveals an S1, S2. ABDOMEN: Soft. There is no pedal edema. There are no new labs. IMPRESSION: 1. Influenza. 2. Dehydration with hyponatremia. 3. Bronchospasm secondary to occult asthma with exacerbation versus a bronchitis precipitated by viral illness. 4. Leukocytosis with neutrophilia. Continue Rocephin IV and aerosolized steroids, albuterol, GI and DVT prophylaxis. Check labs on him. Continue IV fluids. Depending on how he does, we shall make further changes to his care. MMCHELAL / IJN: [id number] /
--- NOTE | 2019-06-24 19:53 | HP ---
HISTORY AND PHYSICAL 29-year-old white male came in with cough, shortness of breath, wheezing. He was diagnosed with the flu on June 16. His oxygen levels were in the low 90s on room air. He had a temperature of 102, diffuse body aches, tachycardic admitted for possibly asthma exacerbation versus bronchospasm secondary to flu virus. CT of the chest for elevated D-dimer is negative for pulmonary embolism. PAST MEDICAL HISTORY: History of some back pain, not sure he has asthma. No COPD. Smokes marijuana. Does not drink alcohol excessively. FAMILY HISTORY: Several members of his family got the flu. MEDICATIONS: None. REVIEW OF SYSTEMS: Fourteen-point review of systems negative except for mentioned in HPI. PHYSICAL EXAMINATION: Blood pressure 130's/80's, respiratory 16-18, pulse 80s to 90s, temp 98.8, O2 on 2 L is mid 90s. HEENT: Pupils are equal, round, reactive. LUNGS: Decreased breath sounds. Prolonged expiratory wheeze. HEART: S1, S2. ABDOMEN: Soft. Diaphoretic integument exam. Hemoglobin 16.2, white count 12, on admission. Sodium 127, potassium 3.4, bicarb 26, creatinine 0.64. ASSESSMENT: 1. Influenza. 2. Dehydration. 3. Bronchospasm. 4. Possible asthma worsened by virus. 5. Leukocytosis secondary to possible tracheobronchitis. Added Rocephin, bronchodilators, steroids, albuterol p.r.n., started on Tamiflu. Continue current treatment. MMODL / IJN: [id number] /
[2019-06-25] MEDS: methylPREDNISolone SOD SUCCI 40 MG/ML 1 ML VIAL IV SCH ×5 (00:50→23:16)
[2019-06-25] MEDS ORDERED: Potassium Replacement Protocol 1 EACH MISC MISCELLANE PRN (02:40)
[2019-06-25] MEDS: POTASSIUM CHLORIDE ER 20 MEQ TAB.ER PO SCH ×2 (02:51→04:08)
[2019-06-25] MEDS: PANTOPRAZOLE 40 MG/10 ML VIAL IV SCH (08:28)
[2019-06-25] MEDS: OSELTAMIVIR 75 MG CAP PO SCH ×2 (08:30→20:37)
[2019-06-25] MEDS: FAMOTIDINE 20 MG/2 ML VIAL IV SCH ×2 (08:30→20:36)
[2019-06-25] MEDS: HEPARIN SODIUM,PORCINE 5,000 UNIT/ML 1 ML VIAL SQ SCH ×2 (08:30→20:37)
[2019-06-25] MEDS: SODIUM CHLORIDE 0.9% 1,000 ML IV SCH ×3 (08:31→23:19)
[2019-06-25] MEDS: BUDESONIDE 0.5 MG/2 ML NEBU INHALATION SCH ×2 (09:26→19:14)
[2019-06-25] MEDS: ALBUTEROL NEBULIZED 2.5 MG/3 ML INHALATION PRN ×2 (09:26→19:14)
--- NOTE | 2019-06-25 13:38 | XR ---
EXAMINATION TYPE: XR chest 2V DATE OF EXAM: 06/25/2019 COMPARISON: None HISTORY: 29-year-old male cough, CAP TECHNIQUE: Frontal and lateral views FINDINGS: The cardiomediastinal silhouette, aorta, and pulmonary vasculature are within normal limits. Mild int erstitial prominence without consolidation or pleural effusion. IMPRESSION: Interstitial prominence could reflect bronchitis, asthma, or atypical pneumonias. No focal consolidat ion to suggest a conventional pneumonia.
[2019-06-25] MEDS ORDERED: AZITHROMYCIN 500 MG in SODIUM CHLORIDE 0.9% 250 ML IVPB SCH (14:00)
[2019-06-25] MEDS: guaiFENesin-DM 100-10MG/5ML 10 ML CUP PO PRN ×2 (14:49→20:37)
--- NOTE | 2019-06-25 14:53 | PN ---
PROGRESS NOTE DATE OF SERVICE: 06/25/2019 He was seen on June 25, 2019. He has been hemodynamically stable. He has less shortness of breath. On physical examination, his vitals are stable. He is afebrile. His chest reveals expiratory wheeze. Cardiovascular system reveals an S1, S2. Abdomen is soft. There is no pedal edema. IMPRESSION: At this time is: 1. Influenza pneumonia. 2. Bronchospasm. Continue steroids, bronchodilators. Increase his activity level. He is slowly starting to improve. MMODL / IJN: [id number] /
--- NOTE | 2019-06-25 17:29 | PN ---
PROGRESS NOTE DATE OF SERVICE: 06/25/2019 29-year-old white male who appears very sick still. He has had severe cough and congestion. Appears not to be getting better quickly. He is sating still in the high 80s to low 90s. I am going to add azithromycin to his antibiotic regimen today and add cough syrup. Continue on steroids. Continue on Rocephin, updraft treatments, and await for Pulmonary recommendations. Lungs show scattered wheeze and rhonchi x4. He has machine gun nonstop cough. Cardiovascular: S1-S2. Hematology negative Homans'. ASSESSMENT AND PLAN: 1. Suspect pneumonia. Repeat chest x-ray. 2. Severe cough nonstop, add cough syrup. Add a 2nd antibiotic. 3. Interstitial prominence of unclear etiology. 4. We are going to add azithromycin. 5. Wait for Pulmonary recommendations. MMODL / IJN: [id number] /
[2019-06-25] MEDS ORDERED: diphenhydrAMINE 25 MG CAP PO PRN (18:21)
[2019-06-25] MEDS: KETOROLAC 30 MG/ML 1 ML VIAL IVP PRN (20:42)
[2019-06-26] MEDS: methylPREDNISolone SOD SUCCI 40 MG/ML 1 ML VIAL IV SCH ×3 (05:00→17:43)
[2019-06-26] MEDS: HEPARIN SODIUM,PORCINE 5,000 UNIT/ML 1 ML VIAL SQ SCH ×2 (08:04→21:12)
[2019-06-26] MEDS: OSELTAMIVIR 75 MG CAP PO SCH ×2 (08:19→21:12)
[2019-06-26] MEDS: FAMOTIDINE 20 MG/2 ML VIAL IV SCH ×2 (08:19→21:12)
[2019-06-26] MEDS: BUDESONIDE 0.5 MG/2 ML NEBU INHALATION SCH ×2 (08:25→19:54)
[2019-06-26] MEDS: ALBUTEROL NEBULIZED 2.5 MG/3 ML INHALATION PRN ×2 (08:25→19:53)
[2019-06-26] MEDS: SODIUM CHLORIDE 0.9% 1,000 ML IV SCH (11:21)
--- NOTE | 2019-06-26 17:40 | P.PN ---
Subjective Progress Note Date: 06/26/19 This is a 29-year-old gentleman with suspected influenza pneumonia and multiple other medical issues. Evaluated by pulmonary with recommendations noted and appreciated. Maintained on nebulized bronchodilators, IV steroids, antibiotics with significant clinical improvement and breathing , bronchospasms and cough. Afebrile. Denies chest pain, palpitations. Denies lightheadedness, dizziness or focal deficits. Chest x-ray reporting no focal consolidation. Objective - Vital Signs Vital signs: Vital Signs Temp 98.3 F 06/26/19 14:44 Pulse 89 06/26/19 14:44 Resp 16 06/26/19 14:44 BP 125/84 06/26/19 14:44 Pulse Ox 94 L 06/26/19 14:44 Intake & Output 06/25/19 06/26/19 06/26/19 18:59 06:59 18:59 Intake Total 540 Balance 540 Intake: Oral 540 Other: Voiding Method Toilet # Voids 3 1 2 - Exam PHYSICAL EXAM: VITAL SIGNS: As above GENERAL: Sitting up in bed, no acute distress HEENT: Conjunctivae normal. eyes normal. NECK: No JVD. No thyroid enlargement. No LNs CARDIOVASCULAR: S1, S2 regular.. No murmur RESPIRATION: Breath sounds diminished in the bases. Scattered rhonchi, no crackles. Fine expiratory wheezing. ABDOMEN: Soft, nontender . No guarding. no masses palpable. No ascites, No hepatosplenomegaly.Bowel sounds heard. LEGS: No edema. no swelling PSYCHIATRY: Alert and oriented X3, mood and affect normal. NERVOUS SYSTEM: Cranial N 2-12 grossly normal. No focal deficits. Strength and sensation grossly intact.. Skin: no rash - Labs CBC & Chem 7: 06/24/19 13:05 06/25/19 08:15 Labs: Microbiology - Last 24 Hours (Table) 06/23/19 14:45 Blood Culture - Preliminary Blood No Growth after 72 hours Assessment and Plan Assessment: Suspect influenza pneumonia Ongoing nicotine dependence THC use Plan: Continue on current medication regime ,monitoring and symptomatic treatment. Maintain nebulized bronchodilators, steroids, antibiotics. Smoking cessation reinforced. Increased induration as tolerated. Discharge planning in progress for tomorrow pending pulmonary clearance. The impression and plan of care has been dictated as directed. : I performed a history and examination of this patient, discussed the same with the dictator. I agree with the dictator's note ,documented as a scribe. Any additional findings or plans will be noted.
[2019-06-26] MEDS: guaiFENesin-DM 100-10MG/5ML 10 ML CUP PO PRN (17:44)
--- NOTE | 2019-06-26 19:42 | PN ---
PROGRESS NOTE DATE OF SERVICE: 06/26/2019 Carmine Marti was seen on June 26, 2019. He is less short of breath, but continues to have a cough. On physical examination, he is on room air with an oxygen saturation of 94%. Blood pressure is 125/84, respiratory rate of 16, pulse rate of 89, temperature 98.3 degrees Fahrenheit. HEENT is unremarkable. Chest reveals no wheezing. Cardiovascular system is S1, S2. Abdomen is soft. There is no pedal edema. IMPRESSION: At this time is: 1. Influenza pneumonia. 2. Bronchospasms. Continue steroids, bronchodilators, increase activity level. Discharge planning for tomorrow if he is otherwise stable on tapering doses of prednisone. MMODL / IJN: [id number] /
[2019-06-26] MEDS: KETOROLAC 30 MG/ML 1 ML VIAL IVP PRN (21:11)
[2019-06-27] MEDS: methylPREDNISolone SOD SUCCI 40 MG/ML 1 ML VIAL IV SCH ×3 (00:35→11:53)
[2019-06-27] MEDS: SODIUM CHLORIDE 0.9% 1,000 ML IV SCH ×2 (00:35→09:53)
[2019-06-27 05:08] VITALS: BP 134/84; RESP 20; TEMP 97.7
[2019-06-27 09:28] LABS: HCT 44.3 % (39.0-53.0); HGB 14.9 gm/dL (13.0-17.5); RBC 5.39 m/uL (4.30-5.90); WBC 12.7 k/uL (3.8-10.6)
[2019-06-27 09:29] LABS: MCH 27.7 pg (25.0-35.0); MCHC 33.7 g/dL (31.0-37.0); MCV 82.2 fL (80.0-100.0); Mean Platelet Volume 7.1; Platelet Count 432 k/uL (150-450); RDW 12.5 % (11.5-15.5)
[2019-06-27 09:39] LABS: African American GFR (CKD) >90 (>60 ml/min/1.73 sqM); Anion Gap 9 mmol/L; Blood Urea Nitrogen 9 mg/dL (9-20); Calcium 8.6 mg/dL (8.4-10.2); Carbon Dioxide 21 mmol/L (22-30); Chloride 107 mmol/L (98-107); Glucose 148 mg/dL (74-99); Non-African American GFR(CKD) >90 (>60 ml/min/1.73 sqM); Potassium 4.3 mmol/L (3.5-5.1); Sodium 137 mmol/L (137-145)
[2019-06-27 09:54] LABS: Band Neutrophils % 2 %; Lymphocytes # (M) 1.91 k/uL (1.0-4.8); Metamyelocytes # (M) 0.76 k/uL (0); Metamyelocytes % 6 %; Monocytes # (M) 0.25 k/uL (0-1.0); Myelocytes # (M) 0.51 k/uL (0); Myelocytes % 4 %; Neutrophils % (M) 73 %; Nucleated Red Blood Cells 0 /100 WBC (0-0); Total Cells Counted 200
[2019-06-27] MEDS: FAMOTIDINE 20 MG/2 ML VIAL IV SCH (09:54)
[2019-06-27] MEDS: OSELTAMIVIR 75 MG CAP PO SCH (09:54)
[2019-06-27] MEDS: HEPARIN SODIUM,PORCINE 5,000 UNIT/ML 1 ML VIAL SQ SCH ×2 (09:54→10:04)
[2019-06-27] MEDS: ALBUTEROL NEBULIZED 2.5 MG/3 ML INHALATION PRN (10:58)
[2019-06-27] MEDS: BUDESONIDE 0.5 MG/2 ML NEBU INHALATION SCH (10:58)
[2019-06-27 11:01] VITALS: PULSE 76
--- NOTE | 2019-06-27 14:51 | PN ---
PROGRESS NOTE He was seen on 06/27/2019. He has been hemodynamically stable. He is not short of breath, but continues to have a cough. Discharge planning is in progress. On physical examination, respiratory rate is 20, pulse rate of 73, temperature 97.7, blood pressure 134/84, O2 saturation on room air is 97%. HEENT reveals pupils are equal. Chest is clear. Cardiovascular system reveals an S1, S2. Abdomen is soft. There is no pedal edema. IMPRESSION: 1. Influenza pneumonia. 2. Bronchospasm in part due to influenza. Continue bronchodilators, aerosolized steroids. I agree with discharge planning on tapering steroids. We will be happy to see him in the outpatient setting in the next few days. MMODL / IJN: [id number] /
--- NOTE | 2019-06-27 18:19 | P.DS ---
Providers Date of admission: 06/25/19 14:33 Expected date of discharge: 06/27/19 Attending physician: Simón Gonzalez Consults: 06/23/19 16:21 Consult Physician Stat Consulting Provider: Chan Lopez Consult Reason/Comments: Influenza, Bronchitis, Hypoxia Do you want consulting provider notified?: Yes Primary care physician: Stated None Hospital Course: Final Diagnoses: Influenza pneumonia Ongoing nicotine dependence Hospital course:This is a 29-year-old gentleman with suspected influenza pneumonia and multiple other medical issues. Evaluated by pulmonary with jessica mmendations noted and appreciated. Maintained on nebulized bronchodilators, IV steroids, antibiotics with significant clinical improvement and breathing , bronchospasms and cough. Afebrile. Denies chest pain, palpitations. Denies lightheadedness, dizziness or focal deficits. Chest x-ray reporting no focal consolidation. Significant clinical improvement. Cleared by pulmonary for discharge. Patient is being discharged home in a stable condition with guarded prognosis. EXAM: GENERAL: Alert and oriented 3, no acute distress CARDIOVASCULAR: S1, S2 regular.. No murmur RESPIRATION: Breath sounds diminished in the bases. ABDOMEN: Soft, nontender . No guarding. Bowel sounds heard. NERVOUS SYSTEM: No focal deficits. The impression and plan of care has been dictated as directed. : I performed a history and examination of this patient, discussed the same with the dictator. I agree with the dictator's note ,documented as a scribe. Any additional findings or plans will be noted. Patient Condition at Discharge: Stable Plan - Discharge Summary Discharge Rx Participant: No New Discharge Prescriptions: New Cefuroxime Axetil [Ceftin] 500 mg PO BID #10 tab predniSONE 10 mg PO DIRECTED #30 tab guaiFENesin-DM 100-10MG/5ML [Robitussin DM] 10 ml PO Q6H PRN cup PRN Reason: Cough Oseltamivir [Tamiflu] 75 mg PO Q12HR #3 cap Acetaminophen Tab [Tylenol] 650 mg PO Q6HR PRN tab PRN Reason: Mild Pain Or Fever > 100.5 Discharge Medication List Acetaminophen Tab [Tylenol] 650 mg PO Q6HR PRN tab 06/27/19 [Rx] Cefuroxime Axetil [Ceftin] 500 mg PO BID #10 tab 06/27/19 [Rx] Oseltamivir [Tamiflu] 75 mg PO Q12HR #3 cap 06/27/19 [Rx] guaiFENesin-DM 100-10MG/5ML [Robitussin DM] 10 ml PO Q6H PRN cup 06/27/19 [Rx] predniSONE 10 mg PO DIRECTED #30 tab 06/27/19 [Rx] Follow up Appointment(s)/Referral(s): None,Stated [Primary Care Provider] - 1 Week (PLEASE CALL YOUR INSURANCE AND SET UP A PRIMARY CARE PHYSICIAN) Patient Instructions/Handouts: Influenza (DC) Discharge/Stand Alone Forms: Work/School Release / Restrict Discharge Disposition: HOME SELF-CARE
== END 2019-06-27 13:44 | disposition home or self-care (01) | DRG 194 ==
LOC: EC 13:26 → 6NMEDSUR 16:21 → OBSVTOIN 06-25 14:33
PROVIDERS: ADMIT Family Medicine; ATTEND Family Medicine
DX: J10.00 Influenza due to other identified influenza virus with unspecified type of pneumonia (principal); E87.1 Hypo-osmolality and hyponatremia; J45.901 Unspecified asthma with (acute) exacerbation; E86.0 Dehydration; F17.200 Nicotine dependence, unspecified, uncomplicated; E87.6 Hypokalemia; Z79.52 Long term (current) use of systemic steroids
CPT/HCPCS: 36415; 71046; 71275; 80048; 80053; 83605; 84132; 84484; 85025; 85379; 85610; 85730; 87040; 93005; 94640; 96361; 96365; 96375; 99285

== ENCOUNTER 2020-05-09 11:57 | Emergency (ER) | payer OTHER ==
[2020-05-09 12:02] VITALS: BP 146/93; PULSE 73; RESP 18; TEMP 98
[2020-05-09] MEDS ORDERED: predniSONE 50 MG TAB PO STA (12:29)
--- NOTE | 2020-05-09 12:30 | ED ---
General Adult HPI - General Chief complaint: Skin/Abscess/Foreign Body Stated complaint: Poison Viry reaction Time Seen by Provider: 05/09/20 12:23 Source: patient, RN notes reviewed, old records reviewed Mode of arrival: ambulatory Limitations: no limitations - History of Present Illness Initial comments: 30-year-old male patient to ED for evaluation. 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 Feels similar to when he had it before in the past. Denies any difficulty breathing sensation of throat closure or any other complaints. Systemic: Pt denies fatigue, fever/chills. Pt denies weakness, night sweats, weight loss. Neuro: Pt denies headache, visual disturbances, syncope or pre-syncope. HEENT: Pt denies ocular discharge or irritation, otalgia, rhinorrhea, pharyngitis or notable lymphadenopathy. Cardiopulmonary: Pt denies chest pain, SOB, heart palpitations, dyspnea on e xertion. Abdominal/GI: Pt denies abdominal pain, n/v/d. : Pt denies dysuria, burning w/ urination, frequency/urgency. Denies new onset urinary or bowel incontinence. MSK: Pt denies myalgia, loss of strength or function in extremities. Neuro: Pt denies new onset weakness, paresthesias. - Related Data Previous Rx's Medication Instructions Recorded Acetaminophen Tab [Tylenol] 650 mg PO Q6HR PRN tab 06/27/19 Cefuroxime Axetil [Ceftin] 500 mg PO BID #10 tab 06/27/19 Oseltamivir [Tamiflu] 75 mg PO Q12HR #3 cap 06/27/19 guaiFENesin-DM 100-10MG/5ML 10 ml PO Q6H PRN cup 06/27/19 [Robitussin DM] predniSONE 10 mg PO DIRECTED #30 tab 06/27/19 predniSONE 50 mg PO DAILY 4 Days #4 tab 05/09/20 Allergies Allergy/AdvReac Type Severity Reaction Status Date / Time azithromycin AdvReac Itching Verified 05/09/20 12:02 Review of Systems ROS Statement: Those systems with pertinent positive or pertinent negative responses have been documented in the HPI. ROS Other: All systems not noted in ROS Statement are negative. Past Medical History Additional Past Medical History / Comment(s): back pain History of Any Multi-Drug Resistant Organisms: None Reported Past Surgical History: No Surgical Hx Reported Past Psychological History: No Psychological Hx Reported Smoking Status: Current every day smoker Past Alcohol Use History: Occasional Past Drug Use History: Marijuana General Exam - General Exam Comments Initial Comments: Constitutional: NAD, AOX3, Pt has pleasant affect. HEENT: NC/AT, trachea midline, neck supple, no lymphadenopathy. Posterior pharynx non erythematous, without exudates. External ears appear normal, without discharge. Mucous membranes moist. Eyes PERRLA, EOM intact. There is no scleral icterus. No pallor noted. Cardiopulmonary: RRR, no murmurs, rubs or gallops, no JVD noted. Lungs CTAB in anterior and posterior cortes. No peripheral edema. Abdominal exam: Abdomen soft and non-distended. Abdomen non-tender to palpation in all 4 quadrants. Bowel sounds active in LLQ. No hepatosplenomegaly. No ecchymosis Neuro: CN II-XII grossly intact. No nuchal rigidity. MSK: Full active ROM in upper and lower extremities. Derm: Mild erythematous rash consistent with contact dermatitis noted left and right forearm, anterior abdomen region. Does not involve the palms or soles. No oropharyngeal involvement or any epidermal detachment. Limitations: no limitations Course Vital Signs 05/09/20 11:58 Temperature 98.0 F Pulse Rate 73 Respiratory 18 Rate Blood Pressure 146/93 O2 Sat by Pulse 99 Oximetry Medical Decision Making - Medical Decision Making 30-year-old male patient ED with contact dermatitis. Patient was treated with burst steroids will discharge the patient follow-up and return precautions. Case discussed with Dr. Warren. Disposition Clinical Impression: Allergic reaction, Contact dermatitis Disposition: HOME SELF-CARE Condition: Stable Instructions (If sedation given, give patient instructions): Poison Viry (ED) Additional Instructions: Follow up with PCP tomorrow. Take steroids as directed. Use over the counter benadryl as needed. Return to ED with any worsening symptoms. Prescriptions: predniSONE 50 mg PO DAILY 4 Days #4 tab Is patient prescribed a controlled substance at d/c from ED?: No Referrals: None,Stated [Primary Care Provider] - 1-2 days Jhonny Christensen [STAFF PHYSICIAN] - 1-2 days Princess Ruiz MD [REFERRING] - 1-2 days
== END 2020-05-09 12:52 | disposition home or self-care (01) ==
LOC: EC 11:57
DX: L23.7 Allergic contact dermatitis due to plants, except food (principal); F17.200 Nicotine dependence, unspecified, uncomplicated; Z88.1 Allergy status to other antibiotic agents
CPT/HCPCS: 99283; J7512

== ENCOUNTER 2024-07-16 11:33 | Emergency (ER) | payer OTHER ==
[2024-07-16 11:38] VITALS: TEMP 97.9
[2024-07-16] MEDS: KETOROLAC 15 MG/ML 1 ML VIAL IM STA (11:56)
[2024-07-16] MEDS: LIDOCAINE 4% PATCH TOPICAL ONE (11:56)
[2024-07-16] MEDS: ORPHENADRINE 30 MG/ML 2 ML VIAL IM STA (11:56)
--- NOTE | 2024-07-16 12:26 | XR ---
Lumbar spine HISTORY: Back pain COMPARISON: None. TECHNIQUE: 3 views of the lumbar spine were obtained. FINDINGS: The lumbar vertebral segments are normal in both height and alignment and there is no fracture or sub luxation. The disc spaces are well-maintained and there is no significant degenerative disc disease. The facet joints are intact. IMPRESSION: No significant abnormality seen. No evidence of acute trauma. [facility], Workstation: [facility], 07/16/2024 12:24 PM
--- NOTE | 2024-07-16 12:28 | ED ---
Back Pain HPI - General Chief Complaint: Back Pain/Injury Stated Complaint: fell back pain Time Seen by Provider: 07/16/24 12:28 Source: patient, RN notes reviewed Mode of arrival: ambulatory Limitations: no limitations - History of Present Illness Initial Comments: 34-year-old male presented to the ER for evaluation of back pain. Patient states on Wednesday he accidentally slipped and fell on ice landing on his left side. He denies any head injury, loss of consciousness. Patient was complaining of a sore back following but states yesterday when coughing he felt a pop in his left back. Since then he has been having extreme pain especially with movement, laying down, coughing, laughing. Patient has not taken anything for pain at this time. He denies any bowel or bladder incontinence/retention, saddle paresthesias, radiation of the pain, fevers or history of IV drug abuse. No other complaints. - Related Data Previous Rx's Medication Instructions Recorded Acetaminophen Tab [Tylenol] 650 mg PO Q6HR PRN tab 06/27/19 Oseltamivir [Tamiflu] 75 mg PO Q12HR #3 cap 06/27/19 cefuroxime axetiL [Ceftin] 500 mg PO BID #10 tab 06/27/19 guaiFENesin-DM 100-10MG/5ML 10 ml PO Q6H PRN cup 06/27/19 [Robitussin DM] predniSONE 10 mg PO DIRECTED #30 tab 06/27/19 predniSONE 50 mg PO DAILY 4 Days #4 tab 05/09/20 Cephalexin [Keflex] 500 mg PO Q6HR #28 cap 03/06/23 HYDROcodone/APAP 5-325MG [[place] 1 tab PO Q4HR PRN 3 Days #18 tab 03/06/23 5-325] Cyclobenzaprine [Flexeril] 10 mg PO TID PRN #15 tab 07/16/24 Lidocaine 4% Patch 1 patch TOPICAL DAILY #30 patch 07/16/24 Allergies Allergy/AdvReac Type Severity Reaction Status Date / Time azithromycin AdvReac Itching Verified 07/16/24 11:37 Review of Systems ROS Statement: Those systems with pertinent positive or pertinent negative responses have been documented in the HPI. ROS Other: All systems not noted in ROS Statement are negative. Past Medical History Additional Past Medical History / Comment(s): back pain History of Any Multi-Drug Resistant Organisms: None Reported Past Surgical History: No Surgical Hx Reported Additional Past Surgical History / Comment(s): Nasal polyp removal Past Psychological History: No Psychological Hx Reported Smoking Status: Current every day smoker Past Alcohol Use History: Occasional Past Drug Use History: Marijuana General Exam Limitations: no limitations General appearance: alert, in no apparent distress Neck exam: Present: normal inspection, full ROM. Absent: tenderness, meningismus, lymphadenopathy Respiratory exam: Present: normal lung sounds bilaterally. Absent: respiratory distress, wheezes, rales, rhonchi, stridor Cardiovascular Exam: Present: regular rate, normal rhythm, normal heart sounds. Absent: systolic murmur, diastolic murmur, rubs, gallop, clicks Extremities exam: Present: normal inspection, full ROM, normal capillary refill (2+ bilateral DP and PT pulses. Negative straight leg raise bilaterally.). Absent: tenderness, pedal edema, joint swelling, calf tenderness Back exam: Present: tenderness (Left paraspinal muscle tenderness about the L1 region. There is no overlying skin changes.) Neurological exam: Present: alert, oriented X3, CN II-XII intact Skin exam: Present: warm, dry, intact, normal color. Absent: rash Course Vital Signs 07/16/24 07/16/24 11:35 13:41 Temperature 97.9 F Pulse Rate 106 H 97 Respiratory 18 20 Rate Blood Pressure 150/102 119/91 O2 Sat by Pulse 96 Oximetry Medical Decision Making - Medical Decision Making Was pt. sent in by a medical professional or institution ([facility], GSE MECHANIC, urgent care, hospital, or group home...) When possible be specific @ -No Did you speak to anyone other than the patient for history (EMS, parent, family, police, friend...)? What history was obtained from this source @ -No Did you review nursing and triage notes (agree or disagree)? Why? @ -I reviewed and agree with nursing and triage notes Were old charts reviewed (outside hosp., previous admission, EMS record, old EKG, old radiological studies, urgent care reports/EKG's, group home records)? Report findings @ -No old charts were reviewed Differential Diagnosis (chest pain, altered mental status, abdominal pain women, abdominal pain men, vaginal bleeding, weakness, fever, dyspnea, syncope, headache, dizziness, GI bleed, back pain, seizure, CVA, palpatations, mental health, musculoskeletal)? @ -Differential Back Pain:Strain, zoster, cauda equina syndrome, epidural abscess, vertebral osteomyelitis, discitis, fracture, subluxation, disc herniation, DJD, spinal stenosis, dissection, AAA, pancreatitis, peptic ulcer disease, pyelonephritis, kidney stone, this is not meant to be an all-inclusive list. EKG interpreted by me (3pts min.). @ -None done X-rays interpreted by me (1pt min.). @ -Lumbar spine x-rays interpreted by me negative for acute fractures. CT interpreted by me (1pt min.). @ -CT thoracic/lumbar spine negative for acute fractures or dislocations. U/S interpreted by me (1pt. min.). @ -None done What testing was considered but not performed or refused? (CT, X-rays, U/S, labs)? Why? @ -None What meds were considered but not given or refused? Why? @ -None Did you discuss the management of the patient with other professionals (professionals i.e. , PA, GSE MECHANIC, lab, RT, psych nurse, high school social studies teacher, harbor pilot, teacher, financial officer, case manager specialist)? Give summary @ -No Was smoking cessation discussed for >3mins.? @ -No Was critical care preformed (if so, how long)? @ -No Were there social determinants of health that impacted care today? How? (Homelessness, low income, unemployed, alcoholism, drug addiction, transportation, low edu. Level, literacy, decrease access to med. care, correction, rehab)? @ -No Was there de-escalation of care discussed even if they declined (Discuss DNR or withdrawal of care, Hospice)? DNR status @ -No What co-morbidities impacted this encounter? (DM, HTN, Smoking, COPD, CAD, Cancer, CVA, ARF, Chemo, Hep., AIDS, mental health diagnosis, sleep apnea, morbid obesity)? @ -None Was patient admitted / discharged? Hospital course, mention meds given and route, prescriptions, significant lab abnormalities, going to OR and other pertinent info. @ -Discharge. 34-year-old male presented the ER for evaluation of back pain. Upon rooming, history and physical exam completed. Patient is mildly hypertensive at 150/102 and tachycardic which is likely due to pain this improved after medications. There is no red flag back pain symptoms indicate of cauda equina syndrome. Patient is neurovascularly intact. There is tenderness to left paraspinal muscles. No overlying skin changes. Pain is worse with movement and palpation. X-rays initially obtained and negative for acute process. As patient complaining of continued pain CT abdomen pelvis was performed and also negative. Patient given symptomatic control in the ER with IM Toradol, lidocaine patch and Norflex with mild improvement. Patient is stable for discharge upon reevaluation. Lidocaine patches and Flexeril prescribed. I advised [id number] ibuprofen and Tylenol for pain control outpatient. Strict return parameters discussed. Patient discharged in stable condition with follow-up to PCP. Patient verbally expressed understanding and agreement with care plan. Case discussed with ED attending, Dr. Glez. Undiagnosed new problem with uncertain prognosis? @ -No Drug Therapy requiring intensive monitoring for toxicity (Heparin, Nitro, Insulin, Cardizem)? @ -No Were any procedures done? @ -No Diagnosis/symptom? @ -Back pain/musculoskeletal pain Acute, or Chronic, or Acute on Chronic? @ -Acute Uncomplicated (without systemic symptoms) or Complicated (systemic symptoms)? @ -Uncomplicated Side effects of treatment? @ -No Exacerbation, Progression, or Severe Exacerbation? @ -No Poses a threat to life or bodily function? How? (Chest pain, [place], [place], pneumonia, PE, COPD, DKA, ARF, appy, cholecystitis, CVA, Diverticulitis, Homicidal, Suic idal, threat to staff... and all critical care pts) @ -No - Radiology Data Radiology results: report reviewed, image reviewed Disposition Clinical Impression: Musculoskeletal pain, Back pain Disposition: HOME SELF-CARE Condition: Stable Instructions (If sedation given, give patient instructions): Acute Low Back Pain (ED) Additional Instructions: Take [id number] ibuprofen and Tylenol for pain control. Take Flexeril as prescribed. You will wear lidocaine patches up to 12 hours a day. Follow-up with PCP. Return to the ER for any new or worsening concerns. Prescriptions: Cyclobenzaprine [Flexeril] 10 mg PO TID PRN #15 tab PRN Reason: Muscle Spasm Lidocaine 4% Patch 1 patch TOPICAL DAILY #30 patch Is patient prescribed a controlled substance at d/c from ED?: No Referrals: None,Stated [Primary Care Provider] - 1-2 days Forms: Area PCPs Time of Disposition: 13:38
--- NOTE | 2024-07-16 13:26 | CT ---
EXAMINATION TYPE: CT thor lumbar spine wo con DATE OF EXAM: 07/16/2024 Comparison: None CLINICAL INDICATION: Male, 34 years old with history of left flank pain; PHH, left side back pain aft er fall x4 days ago CT DLP: 1342.2 mGycm Automated exposure control for dose reduction was used. Findings: The thoracic and lumbar vertebral segments are normal in height and alignment and there is no fractur e or subluxation. The disc spaces are well preserved and there is no significant degenerative disc di sease. There are no large disc herniations. The paraspinal soft tissues are unremarkable. The sacrum and SI joints are normal. IMPRESSION: No evidence of acute trauma to the thoracic or lumbar spine. There are no significant degenerative ch anges. [facility], , 07/16/2024 1:23 PM
[2024-07-16 13:43] VITALS: BP 119/91; PULSE 97; RESP 20
== END 2024-07-16 13:47 | disposition home or self-care (01) ==
LOC: EC 11:33
DX: M79.18 Myalgia, other site (principal); M54.9 Dorsalgia, unspecified; F17.200 Nicotine dependence, unspecified, uncomplicated; Z88.1 Allergy status to other antibiotic agents
CPT/HCPCS: 72100; 72128; 72131; 99284; 96372 ×2; J2360; J1885